=== PATIENT | female | born 1965 | race Caucasian/White ===

== ENCOUNTER 2020-04-08 19:15 | Emergency (ER) | payer SELFPAY ==
[2020-04-08 19:59] LABS: HEMATOCRIT 41.8 % (36.0-47.0); HEMOGLOBIN 13.9 g/dL (12.0-15.5); MEAN CORPUSCULAR HEMOGLOBIN 28.4 pg (27.0-33.4); MEAN CORPUSCULAR HGB CONC 33.2 g/dL (32.0-36.0); MEAN CORPUSCULAR VOLUME 86 fl (80-97); PLATELET COUNT 381 10^3/uL (150-450); RED BLOOD COUNT 4.88 10^6/uL (3.72-5.28); RED CELL DISTRIBUTION WIDTH 14.2 % (11.5-14.0); WHITE BLOOD COUNT 24.4 10^3/uL (4.0-10.5)
--- NOTE | 2020-04-08 20:15 | RADIOLOGY REPORT (SQ) ---
EXAM DESCRIPTION: CLINICAL HISTORY: 55 years Female sob COMPARISON: None. FINDINGS: The cardiomediastinal silhouette appears unremarkable. No consolidating infiltrates or pleural effusions. No pneumothorax. IMPRESSION: No acute abnormality is identified.
[2020-04-08 20:20] LABS: ABSOLUTE LYMPHOCYTES# (MANUAL) 3.9 10^3/uL (0.5-4.7); ABSOLUTE MONOCYTES # (MANUAL) 0.7 10^3/uL (0.1-1.4); ANISOCYTOSIS SLIGHT; BAND NEUTROPHILS % (MANUAL) 1 % (3-5); BASOPHILS % (MANUAL) 0 % (0-2); EOSINOPHILS % (MANUAL) 1 % (0-6); LYMPHOCYTES % (MANUAL) 16 % (13-45); MONOCYTES % (MANUAL) 3 % (3-13); SEGMENTED NEUTROPHILS % (MAN) 79 % (42-78); TOTAL CELLS COUNTED 100
[2020-04-08] MEDS ORDERED: NORMAL SALINE 1000 ML 1,000 ML IV ONE (20:20)
[2020-04-08] MEDS ORDERED: ACETAMINOPHEN 325 MG TABLET PO ONE (20:20)
[2020-04-08 20:23] LABS: OVALOCYTES SLIGHT; PLATELET COMMENT ADEQUATE; POIKILOCYTOSIS SLIGHT
[2020-04-08 20:34] LABS: ALKALINE PHOSPHATASE 97 U/L (38-126); ANION GAP 5 (5-19); ASPARTATE AMINO TRANSFERASE 19 U/L (14-36); BILIRUBIN,TOTAL 0.7 mg/dL (0.2-1.3); BLOOD UREA NITROGEN 7 mg/dL (7-20); CALCIUM 9.2 mg/dL (8.4-10.2); CARBON DIOXIDE 27 mmol/L (22-30); CHLORIDE 104 mmol/L (98-107); GLUCOSE 114 mg/dL (75-110); POTASSIUM 3.5 mmol/L (3.6-5.0); TOTAL PROTEIN 6.7 g/dL (6.3-8.2)
[2020-04-08] MEDS ORDERED: IPRATROPIUM/ALBUTEROL 0.5-2.5 MG/3 ML AMPUL NEB ONE (20:35)
[2020-04-08 20:38] LABS: APPEARANCE,URINE SLIGHTLY-CLOUDY; BILIRUBIN,URINE NEGATIVE (NEGATIVE); COLOR,URINE YELLOW; GLUCOSE, URINE NEGATIVE (NEGATIVE); KETONES,URINE TRACE mg/dL (NEGATIVE); LEUKOCYTE ESTERASE,URINE LARGE (NEGATIVE); NITRITE,URINE NEGATIVE (NEGATIVE); PROTEIN,URINE NEGATIVE (NEGATIVE); URINE SPECIFIC GRAVITY 1.012; UROBILINOGEN,URINE NEGATIVE mg/dL (<2.0)
[2020-04-08] MEDS ORDERED: AZITHROMYCIN INJ 500 MG VIAL IV ONE (20:41)
[2020-04-08] MEDS ORDERED: CEFTRIAXONE INJ 1000 MG VIAL IV ONE (20:41)
--- NOTE | 2020-04-08 20:42 | ER Document Report ---
ED Fever - General Chief Complaint: Fever Stated Complaint: FEVER, BODY ACHES Time Seen by Provider: 04/08/20 20:09 Primary Care Provider: [facility] [Provider Group] - Follow up in 3-5 days [facility] [Provider Group] - Follow up in 3-5 days Notes: Patient is a 55-year-old female who presents the emergency department with a chief complaint of body aches, chills and generally not feeling well for the past 4 days. Patient has developed a fever. She was brought in by EMS and was given 975 of Tylenol. Patient states that she just has not felt well. She does not know if she has had contact with anybody with COVID-19. - Related Data Allergies/Adverse Reactions: No Known Drug Allergies Allergy (Verified 04/08/20 19:55) Past Medical History - General Information source: Patient - Social History Smoking Status: Current Every Day Smoker Family History: Reviewed & Not Pertinent Patient has homicidal ideation: No Review of Systems - Review of Systems Notes: REVIEW OF SYSTEMS: CONSTITUTIONAL : See HPI. EENT: Denies eye, ear, throat, or mouth pain, discharge, or symptoms. Denies nasal or sinus congestion. CARDIOVASCULAR: Denies chest pain. RESPIRATORY: Denies shortness of breath, cough, congestion, difficulty breathing, or wheezing. GASTROINTESTINAL: Denies nausea, vomiting, and diarrhea. Denies abdominal pain. Denies constipation. GENITOURINARY: Denies difficulty urinating, burning, blood in urine, urgency or frequency. MUSCULOSKELETAL: Denies neck and back pain. Denies joint pain or swelling. SKIN: Denies rash, itchiness, or lesions HEMATOLOGIC : Denies easy bruising or bleeding. LYMPHATIC: Denies swollen, painful, enlarged glands. NEUROLOGICAL: Denies no numbness or tingling denies weakness. Denies headache. Denies altered mental status. Denies alteration in speech. PSYCHIATRIC: Denies stress, anxiety, alteration in sleep patterns, or depression. All other systems reviewed and negative. Physical Exam - Vital signs Vitals: Pulse Ox 92 04/08/20 19:38 - Notes Notes: PHYSICAL EXAMINATION: GENERAL: Appears well, healthy, well-nourished, no acute distress. HEAD: Normocephalic, atraumatic. EYES: PERRL, conjunctiva normal, all extraocular movements intact, sclera nonicteric ENT: Moist mucous membranes. NECK: Supple, no noticeable swelling, redness, rash. Normal range of motion. LUNGS: Equal breath sounds bilaterally and clear to auscultation in upper lobes and coarse breath sounds noted in bases. CARDIOVASCULAR: S1-S2, regular rate, regular rhythm. Radial pulses 2+, normal. ABDOMEN: Normoactive bowel sounds. Soft, nontender, no guarding, no rebound tenderness, and no masses palpated. EXTREMITIES: Normal strength and range of motion, no pitting or edema. No cyanosis. NEUROLOGICAL: Moves all extremities upon command. Strength 5/5 in all extremities. PSYCH: Normal mood, normal affect. SKIN: Warm, dry. No rash, lesions, ulcerations noted. Normal skin turgor. Course - Re-evaluation Re-evalutation: 04/08/20 20:52 Patient has a leukocytosis of 24,400 with a left shift of 79 neutrophils. Chemistries show slightly low sodium and potassium of 3.5. All other labs are unremarkable. Urinalysis shows a large amount of leukocytes with small amount of blood. This is consistent with a urinary tract infection. Radiologist reads the chest x-ray as negative, but reviewed chest x-ray with Dr. Tijerina, my attending. It appears that the patient most likely has a developing pneumonia. Patient given Rocephin and azithromycin. There is a possibility patient could have COVID-19 also. Patient will be tested. 04/08/20 21:55 I had the check to check the patient's temperature and it was 98. At this time, I discussed treatment options with the patient. I think the patient will have a good outcome being treated on an outpatient basis for pneumonia and urinary tract infection. Vital signs are stable at this time. Follow-up precautions were given. Verbal discharge instructions were given to the patient. They verbalized understanding. They are stable for discharge. - Vital Signs Vital signs: Temp Pulse Resp BP Pulse Ox 102.9 F H 104 H 9 L 114/72 95 04/08/20 20:19 04/08/20 19:52 04/08/20 23:06 04/08/20 22:00 04/08/20 23:06 - Laboratory Result Diagrams: 04/08/20 19:41 04/08/20 19:41 Laboratory results interpreted by me: 04/08/20 04/08/20 04/08/20 19:41 19:41 20:25 WBC 24.4 H RDW 14.2 H Seg Neuts % (Manual) 79 H Band Neutrophils % 1 L Abs Neuts (Manual) 19.5 H Sodium 136.3 L Potassium 3.5 L Glucose 114 H Urine Ketones TRACE H Urine Blood MODERATE H Ur Leukocyte Esterase LARGE H Discharge - Discharge Clinical Impression: Body aches, Suspected COVID-19 virus infection Fever Qualifiers: Fever type: unspecified Qualified Code(s): R50.9 - Fever, unspecified Pneumonia Qualifiers: Pneumonia type: due to unspecified organism Laterality: right Lung location: middle lobe of lung Qualified Code(s): J18.9 - Pneumonia, unspecified organism Urinary tract infection Qualifiers: Urinary tract infection type: acute cystitis Hematuria presence: with hematuria Qualified Code(s): N30.01 - Acute cystitis with hematuria Condition: Stable Disposition: HOME, SELF-CARE Instructions: COVID-19 Guidance for Persons Under Investigation, Fever ([facility]), Urinary Tract Infection ([facility]) Additional Instructions: You have been diagnosed with a pneumonia. It is very important that you take all of your antibiotics until they are gone even if you are feeling better. Please return to the emergency department immediately if you began having worsening shortness of breath, become confused, have worsening pain, pass out, have persistent vomiting that prevents you from being able to drink fluids for more than 12 hours, or have any other symptoms that are worrisome to you. Please follow-up with your primary care doctor in the next 1-2 days. Your urine shows findings consistent with a urinary tract infection. Please take all the antibiotics as directed even if your symptoms have improved. Please follow-up with your primary care physician as needed. Return to emergency room if you develop fever >101F, persistent vomiting, become lethargic, have severe pain in your sides, or any other symptoms that are concerning to you. You are also being tested for COVID-19. Make sure you self quarantine at home until your results come back. The health department will call you with your results. Make sure you wash your hands frequently. Prescriptions: Cephalexin [Keflex] 500 mg PO BID #14 capsule Azithromycin [Zithromax 250 mg Tablet] 250 mg PO DAILY #4 tablet Referrals: [facility] [Provider Group] - Follow up in 3-5 days [facility] [Provider Group] - Follow up in 3-5 days
[2020-04-08] MEDS ORDERED: POTASSIUM CHLORIDE 10 MEQ TABLET.ER PO ONE (21:17)
--- NOTE | 2020-04-08 21:48 | EKG REPORT ---
SEVERITY:- ABNORMAL ECG - SINUS RHYTHM NONSPECIFIC T ABNORMALITIES, LATERAL LEADS : Confirmed by: Gera Melendez MD 08-Apr-2020 21:47:58
[2020-04-08 23:22] VITALS: BP 114/72
== END 2020-04-08 23:22 | disposition home or self-care (01) ==
LOC: ER 19:15
DX: J18.9 Pneumonia, unspecified organism (principal); N30.01 Acute cystitis with hematuria; M79.10 Myalgia, unspecified site; R50.9 Fever, unspecified; Z20.828 Contact with and (suspected) exposure to other viral communicable diseases; F17.200 Nicotine dependence, unspecified, uncomplicated
CPT/HCPCS: 93005; 94640; 99284; 96361; 96365; 96368; 36415; 87040; 87086; 85025; 87635; 80053; 81001; 71045; 93010; J0696; J7030; J0456; C9803

== ENCOUNTER 2020-08-19 18:04 | Emergency (ER) | payer SELFPAY ==
--- NOTE | 2020-08-19 18:52 | ER Document Report ---
HPI - HPI Time Seen by Provider: 08/19/20 18:49 Notes: 55-year-old female presents to the emergency room today for evaluation after she ran out of her thyroid medication for hypothyroidism over 2 months ago. Patient states she recently moved from [place] 2 months ago, she does not have a job or insurance so she has not sought out a doctor in the area. She did try to get a hold of her doctor in [place], they would not prescribe her since they did not have any recent thyroid studies done. Denies fevers, chills, chest pain,palpitations, shortness of breath, dyspnea, nausea, vomiting, diarrhea, abdominal pain, hematuria,blurred vision, double vision, loss of vision, speech changes, LH, dizziness, syncope, headaches, wheezing, ST, URI, neck pain, weakness, bowel or bladder dysfunction, saddle anesthesia, numbness or tingling in bilateral upper or lower extremities equally, muscle paralysis, weakness in bilateral upper or lower extremities equally or rash. Past Medical History - General Information source: Patient - Social History Smoking Status: Current Every Day Smoker Family History: Reviewed & Not Pertinent Vertical Provider Document - CONSTITUTIONAL Agree With Documented VS: Yes Exam Limitations: No Limitations General Appearance: WD/WN Notes: MEDICATIONS: I agree with the patient medications as charted by the RN. ALLERGIES: I agree with the allergies as charted by the RN. PAST MEDICAL HISTORY/PAST SURGICAL HISTORY: Reviewed and agree as charted by RN. SOCIAL HISTORY: Reviewed and agree as charted by RN. FAMILY HISTORY: No significant familial comorbid conditions directly related to patient complaint EXAM: Reviewed vital signs as charted by RN. PHYSICAL EXAMINATION: reviewed vital signs by RN GENERAL: Well-appearing, well-nourished and in no acute distress. HEAD: Atraumatic, normocephalic. EYES: Pupils equal round and reactive to light, extraocular movements intact, conjunctiva are normal. ENT: Nares patent, oropharynx clear without exudates. Moist mucous membranes. NECK: Normal range of motion, supple without lymphadenopathy LUNGS: Breath sounds clear to auscultation bilaterally and equal. No wheezes rales or rhonchi. HEART: Regular rate and rhythm without murmurs ABDOMEN: Soft, nontender, nondistended abdomen. No guarding, no rebound. No masses appreciated. Female : deferred Musculoskeletal: Normal range of motion, no pitting or edema. No cyanosis. NEUROLOGICAL: Cranial nerves grossly intact. Normal speech, normal gait. Normal sensory, motor exams PSYCH: Normal mood, normal affect. SKIN: Warm, Dry, normal turgor, no rashes or lesions noted. Course - Re-evaluation Re-evalutation: 08/19/20 18:52 Afebrile vital stable no distress. Nurses notes reviewed. TSH 214 and free T4 0.07. Patient was placed on 137 mics of levothyroxine, with her TSH being still elevated with her free T4, will start on 100 mcgs have her repeat in 2 weeks 20- day dose has been given. I did give her information for the [facility] for her to establish care. Patient denies any complaints at this time. All question concerns answered. After performing a Medical Screening Examination, I estimate there is LOW risk for RUPTURED ESOPHAGUS, PNEUMOTHORAX, PULMONARY EMBOLISM, ACUTE CORONARY SYNDROME, OR THORACIC AORTIC DISSECTION, thus I consider the discharge disposition reasonable. I have reevaluated this patient multiple times and no significant life threatening changes are noted. The patient and I have discussed the diagnosis and risks, and we agree with discharging home with close follow-up. We also discussed returning to the Emergency Department immediately if new or worsening symptoms occur. We have discussed the symptoms which are most concerning (e.g., bloody sputum, worsening pain or shortness of breath) that necessitate immediate return. 08/19/20 21:34 - Vital Signs Vital signs: Temp Pulse Resp BP Pulse Ox 98.4 F 100 20 154/92 H 97 08/19/20 18:15 08/19/20 18:15 08/19/20 18:15 08/19/20 18:15 08/19/20 18:15 - Laboratory Results Critical Laboratory Results Reviewed: Yes - Dr. Bonilla Attending or Supervising Physician who Reviewed Labs: MARIFER BONILLA - Radiology Results Critical Radiology Results Reviewed: No Critical Results Discharge - Discharge Clinical Impression: Hypothyroidism Condition: Stable Disposition: HOME, SELF-CARE Instructions: Hypothyroidism ([facility]), [facility] Additional Instructions: your TSH today was 214 and your free T 4was 0.07. You were originally on 137 mics of levothyroxine, I will start you to 100 mics of levothyroxine with a 20- day prescription. You do need to repeat in 2 weeks to make sure that you are on the appropriate dose. You were given a referral to a primary care doctor as well as information on the [facility] which is a local free primary care establishment. Return immediately for any new or worsening symptoms. Follow up with primary care provider, call tomorrow to make followup appointment. Prescriptions: Levothyroxine Sodium 100 mcg PO DAILY #20 tablet Referrals: CHERYL BARCLAY DO [NO LOCAL MD] - Follow up as needed
[2020-08-19 21:21] LABS: FREE T4 (FREE THYROXINE) 0.07 ng/dL (0.78-2.19)
[2020-08-19 23:47] VITALS: BP 124/70
== END 2020-08-19 23:47 | disposition home or self-care (01) ==
LOC: ER 18:04
DX: E03.9 Hypothyroidism, unspecified (principal); F17.200 Nicotine dependence, unspecified, uncomplicated; Z76.0 Encounter for issue of repeat prescription
CPT/HCPCS: 36415; 84439; 84443; 99283